=== PATIENT | female | born 1960 | race African-American/Black ===

== ENCOUNTER → 2016-09-24 | Outpatient (CLI) | payer BC ==
[~2016-09-24] MED LIST: ASPIRIN81 M2 PO; HYDROCHLOROTHIA25 MG PO; LOTREL 10/40 MG1 CAP PO; METFORMIN HCL500 M1 PO; MIRALAX17 GM PO; NEBULIZER; SENOKOT S1 TA1 PO; SIMVASTATIN20 MG PO
--- NOTE | ~2016-09-24 | BD1 ---
[facility] A Service of [facility] & [facility] RADIOLOGY TEXT RESULTS PATIENT: DARÍO ACKERMAN LOCATION: [facility] : 58 UNIT #: [id number] AGE: [address]: Paul Brunson MD SEX: F ORDER DR: [id number] [facility]. [place], [place] [address] [id number] O MR#: [id number] Acc #: [id number] NAME: DARÍO ACKERMAN : 1960 SEX: F STUDY DATE/TIME: 09/24/2016 11:27 UNIT: [facility] ROOM: STUDY DESCRIPTION: BD Dexa Bone Dens 1+ Site Attending Physician: Paul Brunson M.D. Referring Physician: Paul Brunson M.D. Ordering Physician: Paul Brunson M.D. Primary Care Physician: Paul Brunson M.D. MEDICAL IMAGING REPORT This report is preliminary unless electronic signature is present EXAM DEXA Bone density, 09/24/2016 HISTORY Diabetes. On blood pressure medication. Postmenopausal. FINDINGS Bone density scanning performed upper 4 lumbar vertebral segments and proximal left femur in 194 pounds 56-year-old -Italian female. No comparisons. L1-L4: Bone mineral density 1.173 g/cm2 for a T-score 1.1 standard deviations above mean for a reference population normal young individuals and a Z-score 1.5 standard deviations above the mean for age-match population. In the proximal left femur the total bone mineral density is 1.045 g/cm2 for a T-score 0.8 standard deviation above the mean for a reference population normal young individuals and a Z-score 0.7 standard deviations above the mean for age-match population. In the left femoral neck, bone density is 0.979 g/cm2 for a T-score 1.2 standard deviations above the mean for a reference population normal young individuals and a Z-score 1.1 standard deviations above the mean for age-match population. IMPRESSION Normal bone mineral density upper 4 lumbar vertebral segments and proximal left femur. Please correlate with the patient's clinical status. Continued surveillance recommended. STS. [facility] A Service of [facility] & [facility] RADIOLOGY TEXT RESULTS PATIENT: DARÍO ACKERMAN LOCATION: [facility] : 58 UNIT #: [id number] AGE: [address]: Paul Brunson MD SEX: F ORDER DR: Dictated by... Irving Mckeon M.D. THIS IS AN ELECTRONICALLY VERIFIED REPORT Irving Mckeon M.D. at 09/26/2016 8:25 AM Dominique TD: 09/25/2016 20:23 JOB #: [id number] MEDICAL IMAGING REPORT Page 1 of 1 COPY
--- NOTE | ~2016-09-24 | MY11 ---
[facility] A Service of [facility] & [facility] RADIOLOGY TEXT RESULTS PATIENT: DARÍO ACKERMAN LOCATION: [facility] : 58 UNIT #: [id number] AGE: [address]: Paul Brunson MD SEX: F ORDER DR: [id number] [facility]. [place], [place] [address] [id number] O MR#: [id number] Acc #: [id number] NAME: DARÍO ACKERMAN : 1960 SEX: F STUDY DATE/TIME: 09/24/2016 11:09 UNIT: [facility] ROOM: STUDY DESCRIPTION: MY Mammogram Screening Dig Brannon Attending Physician: Paul Brunson M.D. Referring Physician: Paul Brunson M.D. Ordering Physician: Paul Brunson M.D. Primary Care Physician: Paul Brunson M.D. MEDICAL IMAGING REPORT This report is preliminary unless electronic signature is present EXAM Digital screening mammogram, 09/24/2016 HISTORY 56-year-old woman no risk elevation. Annual screening. COMPARISON Mammograms date to 12/05/2010 with most recent 07/25/2015. FINDINGS Digital imaging of each breast was completed utilizing a two-view examination of each breast in craniocaudal and mediolateral-oblique projections. Review and interpretation of digital mammograms include a second review in conjunction with FDA-approved CAD device. There is a normal parenchymal presentation bilaterally consistent with the patient's age. There are no breast masses imaged and no parenchymal asymmetry is visualized. There are no suspicious microcalcifications and I see no focal architectural disturbance. IMPRESSION Negative screening digital mammogram. One-year followup recommended. Patients over the age of 40 are entered into a reminder system with target due date for the next mammogram. A result letter will also be sent to the patient. BIRADS: 1 Negative Dictated by... Zeferino Jackman M.D. THIS IS AN ELECTRONICALLY VERIFIED REPORT Zeferino Jackman M.D. at 09/25/2016 8:05 AM [facility] A Service of [facility] & [facility] RADIOLOGY TEXT RESULTS PATIENT: DARÍO ACKERMAN [facility] [id number] : 58 UNIT #: [id number] AGE: [address]: Paul Brunson MD SEX: F ORDER DR: Brooklynn TD: 09/24/2016 18:13 JOB #: [id number] MEDICAL IMAGING REPORT Page 1 of 1 COPY
== END | disposition home or self-care (01) ==
LOC: CWCC 10:45
DX: Z12.31 Encounter for screening mammogram for malignant neoplasm of breast (principal); Z13.820 Encounter for screening for osteoporosis; Z78.0 Asymptomatic menopausal state
CPT/HCPCS: 77080; G0202